=== PATIENT | male | born 1960 | race African-American/Black ===

== ENCOUNTER 2016-11-28 23:07 | Inpatient (IN) | payer SELFPAY ==
[~2016-11-28] VITALS: Ht 165.1 cm; Wt 71.7 kg
[2016-11-28] MEDS ORDERED: IV NORMAL SALINE 1000ML BAG 1,000 ML IV ONE (23:30)
[2016-11-28 23:32] LABS: BASO # 0.1 x10^3/uL (0.0-0.2); BASO % 1 % (0-3); EOS % 1 % (0-3); HEMATOCRIT 46.3 % (39.0-53.0); HEMOGLOBIN 15.6 g/dL (13.0-17.5); LYMPH % 28 % (24-48); MEAN CORPUSCULAR HEMOGLOBIN 34 pg (25-35); MEAN CORPUSCULAR HGB CONC 34 g/dL (31-37); MEAN CORPUSCULAR VOLUME 99 fL (79-100); MONO % 8 % (0-9); NEUT % 62 % (31-73); PLATELET COUNT 157 x10^3/uL (140-400); RED BLOOD COUNT 4.66 x10^6/uL (4.30-5.70); RED CELL DISTRIBUTION WIDTH 13.8 % (11.5-14.5); WHITE BLOOD COUNT 7.2 x10^3/uL (4.0-11.0)
[2016-11-28 23:47] LABS: BILIRUBIN,URINE NEGATIVE (NEG); GLUCOSE,URINE >=1000 mg/dL (NEG); NITRITE,URINE NEGATIVE (NEG); PH,URINE 5.5; PROTEIN,URINE NEGATIVE (NEG-TRACE); UROBILINOGEN,URINE 0.2 mg/dL (0.2 mg/dL)
[2016-11-28 23:47] LABS: ALBUMIN 3.1 g/dL (3.4-5.0); ALBUMIN/GLOBULIN RATIO 0.9 (1.0-1.7); CALCIUM 9.2 mg/dL (8.5-10.1); CREATININE 1.3 mg/dL (0.7-1.3); GFR 69.6; MAGNESIUM 1.7 mg/dL (1.8-2.4); POTASSIUM 4.1 mmol/L (3.5-5.1); TOTAL BILIRUBIN 0.5 mg/dL (0.2-1.0); TOTAL PROTEIN 6.5 g/dL (6.4-8.2)
[2016-11-28 23:51] LABS: BACTERIA,URINE 0 /HPF (0-FEW); RBC,URINE 0 /HPF (0-2); SQUAMOUS EPITHELIAL CELL,UR OCC /LPF; WBC,URINE 0 /HPF (0-4)
[2016-11-29] VITALS (7 sets, daily range): BP systolic 128–182; BP diastolic 74–108
[2016-11-29] LABS: PLT ESTIMATE ADEQUATE (ADEQUATE)
[2016-11-29] MEDS ORDERED: INSULIN REGULAR 100 UNIT/ML 10ML VIAL. SQ ONE (01:15)
[2016-11-29] MEDS: IV NORMAL SALINE 1000ML BAG 1,000 ML IV SCH ×3 (01:33→17:33)
[2016-11-29] MEDS ORDERED: ACETAMINOPHEN 325 MG TABLET. PO PRN (01:45)
[2016-11-29] MEDS ORDERED: MORPHINE SULFATE 2 MG/ML DISP.SYRIN. IV PRN (01:45)
[2016-11-29] MEDS ORDERED: ONDANSETRON PF 4 MG/2 ML VIAL. IV PRN (01:45)
[2016-11-29] MEDS ORDERED: DEXTROSE 50% 25 GM / 50ML DISP.SYRIN. IV PRN (01:45)
[2016-11-29] MEDS ORDERED: IV NORMAL SALINE 1000ML BAG 1,000 ML IV ONE (01:45)
--- NOTE | 2016-11-29 02:45 | PHYS DOC ---
Past Medical History Past Medical History: Diabetes-Type I, Glaucoma, Hypertension Past Surgical History: Other Additional Past Surgical Histo: shoulder Alcohol Use: Occasionally Drug Use: Marijuana Adult General Chief Complaint Chief Complaint: HYPERGLYCEMIA HPI HPI Patient is a 56 year old male who presents with hyperglycemia. The patient is insulin dependent type 1 diabetic. He states he recently started staying at [facility] & they have changed his insulin regimen. Typically takes long- acting insulin in AM & PM, as well as short-acting with meals. Facility eliminated AM dose of insulin & he only received 2 doses of short-acting yesterday since he didn't eat dinner. He reports polyuria & polydipsia. EMS originally called because he had blood pressure recheck with SBP in 160s, facility has policy to transfer to ED. Upon their arrival his BP had improved but glucometer reading was "high." He denies headache, chest pain, shortness of breath, abdominal pain, vomiting, diarrhea, dysuria, extremity numbness/ weakness. Review of Systems Review of Systems Constitutional: Denies fever or chills Eyes: Denies change in visual acuity HENT: Denies nasal congestion or sore throat Respiratory: Denies cough or shortness of breath Cardiovascular: Denies chest pain or edema GI: Denies abdominal pain, nausea, vomiting, or diarrhea : Denies dysuria or hematuria Endocrine: reports polyuria & polydipsia. Musculoskeletal: Denies back pain or joint pain Integument: Denies rash or skin lesions Neurologic: Denies headache, focal weakness or sensory changes Current Medications Current Medications Current Medications Medications (Trade) Dose Ordered Sig/Parveen Start Time Stop Time Status Last Admin Dose Admin Sodium Chloride 1,000 ml @ 1,000 mls/hr 1X ONCE 11/28/16 23:30 11/29/16 00:29 DC 11/28/16 23:29 1,000 MLS/HR Allergies Allergies Allergies Coded Allergies Type Severity Reaction Last Updated Verified Penicillins Allergy Intermediate rash 11/28/16 Yes Physical Exam Physical Exam Constitutional: Well developed, well nourished, no acute distress, non-toxic appearance. HENT: Normocephalic, atraumatic, bilateral external ears normal, oropharynx moist, nose normal. Eyes: PERRLA, EOMI, conjunctiva normal, no discharge. Neck: supple, no stridor. Cardiovascular: RRR, no murmurs, no edema. Lungs & Thorax: LCTAB, no wheezing, no respiratory distress. Abdomen: soft, nontender, nondistended. Skin: Warm, dry, no erythema, no rash. Back: No tenderness. Extremities: No tenderness, no edema. Neurologic: Alert and oriented X 3, moves all extremities, no focal deficits noted. Psychologic: Affect normal, judgement normal, mood normal. Current Patient Data Vital Signs Vital Signs Date Time Temp Pulse Resp B/P (MAP) Pulse Ox O2 Delivery O2 Flow Rate FiO2 11/29/16 00:30 64 184/102 (129) 96 Room Air 11/28/16 23:10 98.1 16 98.1 Lab Values Laboratory Tests Test 11/28/16 23:25 11/28/16 23:40 White Blood Count 7.2 x10^3/uL (4.0-11.0) Red Blood Count 4.66 x10^6/uL (4.30-5.70) Hemoglobin 15.6 g/dL (13.0-17.5) Hematocrit 46.3 % (39.0-53.0) Mean Corpuscular Volume 99 fL (79-100) Mean Corpuscular Hemoglobin 34 pg (25-35) Mean Corpuscular Hemoglobin Concent 34 g/dL (31-37) Red Cell Distribution Width 13.8 % (11.5-14.5) Platelet Count 157 x10^3/uL (140-400) Neutrophils (%) (Auto) 62 % (31-73) Lymphocytes (%) (Auto) 28 % (24-48) Monocytes (%) (Auto) 8 % (0-9) Eosinophils (%) (Auto) 1 % (0-3) Basophils (%) (Auto) 1 % (0-3) Neutrophils # (Auto) 4.5 x10^3uL (1.8-7.7) Lymphocytes # (Auto) 2.0 x10^3/uL (1.0-4.8) Monocytes # (Auto) 0.6 x10^3/uL (0.0-1.1) Eosinophils # (Auto) 0.1 x10^3/uL (0.0-0.7) Basophils # (Auto) 0.1 x10^3/uL (0.0-0.2) Platelet Estimate Adequate (ADEQUATE) Giant Platelets Occ Sodium Level 134 mmol/L (136-145) L Potassium Level 4.1 mmol/L (3.5-5.1) Chloride Level 99 mmol/L (98-107) Carbon Dioxide Level 25 mmol/L (21-32) Anion Gap 10 (6-14) Blood Urea Nitrogen 16 mg/dL (8-26) Creatinine 1.3 mg/dL (0.7-1.3) Estimated GFR (Cockcroft-Gault) 69.6 BUN/Creatinine Ratio 12 (6-20) Glucose Level 680 mg/dL (70-99) *H Serum Osmolality 317 mOsm/Kg (279-304) H Calcium Level 9.2 mg/dL (8.5-10.1) Phosphorus Level 4.0 mg/dL (2.6-4.7) Magnesium Level 1.7 mg/dL (1.8-2.4) L Total Bilirubin 0.5 mg/dL (0.2-1.0) Aspartate Amino Transferase (AST) 231 U/L (15-37) H Alanine Aminotransferase (ALT) 520 U/L (16-63) H Alkaline Phosphatase 251 U/L (46-116) H Troponin I Quantitative < 0.017 ng/mL (0.000-0.055) Total Protein 6.5 g/dL (6.4-8.2) Albumin 3.1 g/dL (3.4-5.0) L Albumin/Globulin Ratio 0.9 (1.0-1.7) L Urine Collection Type Unknown Urine Color Yellow Urine Clarity Clear Urine pH 5.5 Urine Specific [place] >=1.030 Urine Protein Negative mg/dL (NEG-TRACE) Urine Glucose (UA) >=1000 mg/dL (NEG) Urine Ketones (Stick) Negative mg/dL (NEG) Urine Blood Negative (NEG) Urine Nitrite Negative (NEG) Urine Bilirubin Negative (NEG) Urine Urobilinogen Dipstick 0.2 mg/dL (0.2 mg/dL) Urine Leukocyte Esterase Negative (NEG) Urine RBC 0 /HPF (0-2) Urine WBC 0 /HPF (0-4) Urine Squamous Epithelial Cells Occ /LPF Urine Bacteria 0 /HPF (0-FEW) Laboratory Tests 11/28/16 23:25 Laboratory Tests 11/28/16 23:25 EKG EKG interpreted by me: NSR rate 66, no acute ST/T wave changes, Q waves in V1-V3, normal intervals, no ectopy. Radiology/Procedures Radiology/Procedures [] Course & Med Decision Making Course & Med Decision Making Pertinent Labs and Imaging studies reviewed. (See chart for details) The patient presents with hyperglycemia. Blood glucose > 600 but not in DKA. Essentially no complaints here. Gave IV fluid bolus x 2 followed by subcutaneous injection of regular insulin. No osmolar gap. Recommended admission for further management of blood glucose. Patient agrees with plan of care. Will continue frequent accuchecks & sliding scale insulin, seems to be improving after insulin injection so I do not believe he requires insulin gtt at this time. Discussed with Dr. Barillas who agrees to admit to inpatient status. The patient is admitted in stable condition. [] Dragon Disclaimer Dragon Disclaimer This electronic medical record was generated, in whole or in part, using a voice recognition dictation system. Departure Departure Impression: Primary Impression: Hyperglycemia Additional Impression: Essential hypertension Disposition: ADMITTED INPATIENT Admitting Physician: Fredo Barillas Condition: STABLE Problem Qualifiers NINI MADERA MD November 29, 2016 02:45
[2016-11-29] MEDS ORDERED: INSU100I17 SQ (02:53)
[2016-11-29] MEDS ORDERED: LISI-334 PO (02:56)
[2016-11-29] MEDS ORDERED: INSU100V13 SQ ×2 (02:56)
--- NOTE | 2016-11-29 03:43 | ACF ---
Admit Criteria Forms Admit Criteria Forms Admit Criteria Forms HYPERTENSION Clinical Indications for Admission to Inpatient Care ( Place "X" for any and all applicable criteria): Admission is indicated for ANY ONE of the following(1)(2)(3)(4): [ ]I. Hypertensive emergency, with evidence of acute and progressing target organ disease as indicated by ANY ONE of the following: [ ]a) Hypertensive encephalopathy (eg, confusion, altered mental status) [ ]b) Cerebral infarction [ ]c) Intracranial hemorrhage [ ]d) Myocardial ischemia or infarction [ ]e) Pulmonary edema [ ]f) Aortic dissection [ ]g) Seizure [ ]h) Acute renal insufficiency [ ]i) Papilledema [ ]j) Microangiopathic hemolytic anemia [ ]II. Adrenergic crisis (eg, severe hypertension due to pheochromocytoma crisis, cocaine or amphetamine intoxication, or clonidine withdrawal) [X]III. Severe hypertension (SBP greater than 180 mmHg or DBP greater than 110 mmHg or greater than the 95th percentile for age, gender, and height in pediatric patients) that cannot be controlled (eg, to SBP less than 160 mmHg and DBP less than 100 mmHg in adults) by treatment with oral medication in emergency department or observation care Extended stay beyond goal length of stay may be needed for(11)(12)(13): [ ]a) Persistent hypertensive encephalopathy [ ]b) Continuation of pulmonary edema [ ]c) Recurring or persistent severe hypertension [ ]d) Target organ damage (eg, angina, stroke, aortic dissection) [ ]e) Associated renal insufficiency The original [employer] content created by [employer] has been revised. The portions of the content which have been revised are identified through the use of italic text or in bold, and [facility] has neither reviewed nor approved the modified material. All other unmodified content is copyright [employer]. Please see references footnoted in the original [email or web address] edition 2016 KAJAL ESCAMILLA November 29, 2016 03:43
--- NOTE | 2016-11-29 06:23 | EKG ---
[facility] [address] [place] [address] Test Date: 2016-11-28 Test Time: 23:32:31 Pat Name: VAISHALI BUSTILLOS Department: Room: 506 1 Gender: M Acid Treater: : 1960 Requested By: NINI MADERA Order Number: [id number] Reading MD: Omer Heard Measurements Intervals [place] Rate: 66 P: 41 DC: 152 QRS: 3 QRSD: 86 T: 60 QT: 410 QTc: 432 Interpretive Statements SINUS RHYTHM Electronically Signed On 11-30-2016 10:41:54 CDT by Omer Heard
[2016-11-29] MEDS: LISINOPRIL 20 MG TABLET PO SCH (08:19)
[2016-11-29] MEDS: INSULIN ASPART 300 UNITS/3 ML INSULN.PEN SQ SCH ×6 (08:26→17:32)
[2016-11-29] MEDS ORDERED: ZOLPIDEM 5 MG TABLET. PO PRN (08:30)
--- NOTE | 2016-11-29 08:48 | PDOC1 ---
History and Physical Date of Admission Date of Admission DATE: 11/29/16 TIME: 08:43 Identification/Chief Complaint Chief Complaint headache, lethargy Problems: Source Source: Chart review, Patient History of Present Illness History of Present Illness Mr. Smiley, is a 56 year old male who presents with hyperglycemia. The patient is insulin dependent type 1 diabetic. He states he recently started staying at [facility] & they have changed his insulin regimen. Typically takes long-acting insulin in AM & PM, as well as short-acting with meals. Facility eliminated AM dose of insulin & he only received 2 doses of short-acting yesterday since he didn't eat dinner. He reports polyuria & polydipsia. EMS originally called because he had blood pressure recheck with SBP in 160s, facility has policy to transfer to ED. Upon their arrival his BP had improved but glucometer reading was "high." He denies headache, chest pain , shortness of breath, abdominal pain, vomiting, diarrhea, dysuria, extremity numbness/weakness. Past Medical History Cardiovascular: HTN Pulmonary: No pertinent hx GI: No pertinent hx Heme/Onc: No pertinent hx Hepatobiliary: Hep A/B/C Psych: No pertinent hx Endocrine: Diabetes Past Surgical History Past Surgical History: No pertinent history Family History Family History: No Significant Social History Smoke: No ALCOHOL: none Drugs: None Current Problem List Problem List Problems Medical Problems: (1) Essential hypertension Status: Acute (2) Hyperglycemia Status: Acute Problems: Current Medications Current Medications Current Medications Sodium Chloride 1,000 ml @ 1,000 mls/hr 1X ONCE IV Last administered on 23:29; Start 11/28/16 at 23:30; Stop 11/29/16 at 00:29; Status DC Insulin Human Regular (NovoLIN R VIAL) 10 unit 1X ONCE SQ Last administered on 11/29/16 01:20; Start 11/29/16 at 01:15; Stop 11/29/16 at 01:16; Status DC Ondansetron HCl (Zofran) 4 mg PRN Q8HRS PRN IV NAUSEA/VOMITING; Start 11/29/16 at 01:45; Stop 11/30/16 at 01:44 Morphine Sulfate 2 mg PRN Q2HR PRN IV SEVERE PAIN; Start 11/29/16 at 01:45; Stop 11/30/16 at 01:44 Sodium Chloride 1,000 ml @ 125 mls/hr Q8H IV Last administered on 11/29/16 01 :33; Start 11/29/16 at 01:33; Stop 11/30/16 at 01:32 Acetaminophen (Tylenol) 650 mg PRN Q4HRS PRN PO FEVER; Start 11/29/16 at 01:45 ; Stop 11/30/16 at 01:44 Insulin Aspart (NovoLOG) 0-7 UNITS TIDWMEALS SQ Last administered on 11/29/16 08:27; Start 11/29/16 at 08:00 Dextrose (Dextrose 50%-Water Syringe) 12.5 gm PRN Q15MIN PRN IV SEE COMMENTS; Start 11/29/16 at 01:45 Sodium Chloride 1,000 ml @ 1,000 mls/hr 1X ONCE IV Last administered on 01:44; Start 11/29/16 at 01:45; Stop 11/29/16 at 02:44; Status DC Insulin Aspart (NovoLOG) 15 units TIDAC SQ Last administered on 11/29/16 08:26 ; Start 11/29/16 at 07:30 Lisinopril (Prinivil) 20 mg DAILY PO Last administered on 11/29/16 08:19; Start 11/29/16 at 09:00 Insulin Detemir (Levemir) 45 units BID SQ ; Start 11/30/16 at 09:00 Non-Formulary Medication 45 unit HS SQ ; Start 11/29/16 at 21:00; Status UNV Nicotine (Nicoderm Cq 14mg) 1 patch DAILY TD ; Start 11/29/16 at 09:00 Zolpidem Tartrate (Ambien) 5 mg PRN QHS PRN PO INSOMNIA, MAY REPEAT IN 1HR; Start 11/29/16 at 08:30 Active Scripts Active Reported Lisinopril 20 Mg Tablet 1 Tab PO DAILY Levemir (Insulin Detemir) 100 Unit/1 Ml Vial 45 Unit SQ DAILY07 Levemir (Insulin Detemir) 100 Unit/1 Ml Vial 45 Unit SQ HS Novolog Flexpen (Insulin Aspart) 100 Unit/1 Ml Insuln.pen 1 Unit SQ TIDAC Allergies Allergies: Coded Allergies: Penicillins (Verified Allergy, Intermediate, rash, 11/28/16) ROS General: YES: Fatigue, Malaise, No: Chills, Night Sweats, Appetite, Other PSYCHOLOGICAL ROS: No: Anxiety, Behavioral Disorder, Concentration difficultie , Decreased libido, Depression, Disorientation, Hallucinations, Hostility, Irritablity, Memory difficulties, Mood Swings, Obsessive thoughts, Physical abuse, Sexual abuse, Sleep disturbances, Suicidal ideation, Other Eyes: No Blurry vision, No Decreased vision, No Double vision, No Dry eyes, No Excessive tearing, No Eye Pain, No Itchy Eyes, No Loss of vision, No Photophobia , No Scotomata, No Uses contacts, No Uses glasses, No Other HEENT: YES: Heacaches, No: Visual Changes, Hearing change, Nasal congestion, Nasal discharge, Oral lesions, Sinus pain, Sore Throat, Epistaxis, Sneezing, Snoring, Tinnitus, Vertigo, Vocal changes, Other Respiratory: No: Cough, Hemoptysis, Orthopnea, Pleuritic Pain, Shortness of breath, SOB with excertion, Sputum Changes, Stridor, Tachypnea, Wheezing, Other Cardiovascular: No Chest Pain, No Palpitations, No Orthopnea, No Paroxysmal Noc. Dyspnea, No Edema, No Lt Headedness, No Other Gastrointestinal: Yes Nausea, No Vomiting, No Abdominal Pain, No Diarrhea, No Constipation, No Melena, No Hematochezia, No Other Genitourinary: No Dysuria, No Frequency, No Incontinence, No Hematuria, No Retention, No Discharge, No Urgency, No Pain, No Flank Pain, No Other, No , No , No , No , No , No , No Musculoskeletal: No Gait Disturbance, No Joint Pain, No Joint Stiffness, No Joint Swelling, No Muscle Pain, No Muscular Weakness, No Pain In:, No Swelling In:, No Other Neurological: No Behavorial Changes, No Bowel/Bladder ControlChng, No Confusion , No Dizziness, No Gait Disturbance, No Headaches, No Impaired Coord/balance, No Memory Loss, No Numbness/Tingling, No Seizures, No Speech Problems, No Tremors, No Visual Changes, No Weakness, No Other Skin: No Dry Skin, No Eczema, No Hair Changes, No Lumps, No Mole Changes, No Mottling, No Nail Changes, No Pruritus, No Rash, No Skin Lesion Changes, No Other, No Acne Physical Exam General: Alert, Cooperative, No acute distress HEENT: Atraumatic, PERRLA, EOMI, Mucous membr. moist/pink Lungs: Clear to auscultation, Normal air movement Heart: no gallops, no murmurs Abdomen: Normal bowel sounds Extremities: No cyanosis, No edema, Normal pulses Skin: No significant lesion Neuro: Normal gait, Strength at 5/5 X4 ext, Normal tone Psych/Mental Status: Mental status NL, Mood NL Vitals Vitals Vital Signs Date Time Temp Pulse Resp B/P (MAP) Pulse Ox O2 Delivery O2 Flow Rate FiO2 11/29/16 08:19 60 182/101 11/29/16 07:00 97.5 18 95 Room Air 97.5 Labs Labs Laboratory Tests Test 11/28/16 23:25 11/28/16 23:40 11/29/16 01:37 11/29/16 02:02 White Blood Count 7.2 x10^3/uL (4.0-11.0) Red Blood Count 4.66 x10^6/uL (4.30-5.70) Hemoglobin 15.6 g/dL (13.0-17.5) Hematocrit 46.3 % (39.0-53.0) Mean Corpuscular Volume 99 fL (79-100) Mean Corpuscular Hemoglobin 34 pg (25-35) Mean Corpuscular Hemoglobin Concent 34 g/dL (31-37) Red Cell Distribution Width 13.8 % (11.5-14.5) Platelet Count 157 x10^3/uL (140-400) Neutrophils (%) (Auto) 62 % (31-73) Lymphocytes (%) (Auto) 28 % (24-48) Monocytes (%) (Auto) 8 % (0-9) Eosinophils (%) (Auto) 1 % (0-3) Basophils (%) (Auto) 1 % (0-3) Neutrophils # (Auto) 4.5 x10^3uL (1.8-7.7) Lymphocytes # (Auto) 2.0 x10^3/uL (1.0-4.8) Monocytes # (Auto) 0.6 x10^3/uL (0.0-1.1) Eosinophils # (Auto) 0.1 x10^3/uL (0.0-0.7) Basophils # (Auto) 0.1 x10^3/uL (0.0-0.2) Platelet Estimate Adequate (ADEQUATE) Giant Platelets Occ Sodium Level 134 mmol/L (136-145) Potassium Level 4.1 mmol/L (3.5-5.1) Chloride Level 99 mmol/L (98-107) Carbon Dioxide Level 25 mmol/L (21-32) Anion Gap 10 (6-14) Blood Urea Nitrogen 16 mg/dL (8-26) Creatinine 1.3 mg/dL (0.7-1.3) Estimated GFR (Cockcroft-Gault) 69.6 BUN/Creatinine Ratio 12 (6-20) Glucose Level 680 mg/dL (70-99) Serum Osmolality 317 mOsm/Kg (279-304) Calcium Level 9.2 mg/dL (8.5-10.1) Phosphorus Level 4.0 mg/dL (2.6-4.7) Magnesium Level 1.7 mg/dL (1.8-2.4) Total Bilirubin 0.5 mg/dL (0.2-1.0) Aspartate Amino Transf (AST/SGOT) 231 U/L (15-37) Alanine Aminotransferase (ALT/SGPT) 520 U/L (16-63) Alkaline Phosphatase 251 U/L (46-116) Troponin I Quantitative < 0.017 ng/mL (0.000-0.055) Total Protein 6.5 g/dL (6.4-8.2) Albumin 3.1 g/dL (3.4-5.0) Albumin/Globulin Ratio 0.9 (1.0-1.7) Urine Collection Type Unknown Urine Color Yellow Urine Clarity Clear Urine pH 5.5 Urine Specific [place] >=1.030 Urine Protein Negative mg/dL (NEG-TRACE) Urine Glucose (UA) >=1000 mg/dL (NEG) Urine Ketones (Stick) Negative mg/dL (NEG) Urine Blood Negative (NEG) Urine Nitrite Negative (NEG) Urine Bilirubin Negative (NEG) Urine Urobilinogen Dipstick 0.2 mg/dL (0.2 mg/dL) Urine Leukocyte Esterase Negative (NEG) Urine RBC 0 /HPF (0-2) Urine WBC 0 /HPF (0-4) Urine Squamous Epithelial Cells Occ /LPF Urine Bacteria 0 /HPF (0-FEW) Glucose (Fingerstick) 500 mg/dL (70-99) 491 mg/dL (70-99) Test 11/29/16 07:42 Glucose (Fingerstick) 290 mg/dL (70-99) Laboratory Tests Test 11/28/16 23:25 11/28/16 23:40 11/29/16 01:37 11/29/16 02:02 White Blood Count 7.2 x10^3/uL (4.0-11.0) Red Blood Count 4.66 x10^6/uL (4.30-5.70) Hemoglobin 15.6 g/dL (13.0-17.5) Hematocrit 46.3 % (39.0-53.0) Mean Corpuscular Volume 99 fL (79-100) Mean Corpuscular Hemoglobin 34 pg (25-35) Mean Corpuscular Hemoglobin Concent 34 g/dL (31-37) Red Cell Distribution Width 13.8 % (11.5-14.5) Platelet Count 157 x10^3/uL (140-400) Neutrophils (%) (Auto) 62 % (31-73) Lymphocytes (%) (Auto) 28 % (24-48) Monocytes (%) (Auto) 8 % (0-9) Eosinophils (%) (Auto) 1 % (0-3) Basophils (%) (Auto) 1 % (0-3) Neutrophils # (Auto) 4.5 x10^3uL (1.8-7.7) Lymphocytes # (Auto) 2.0 x10^3/uL (1.0-4.8) Monocytes # (Auto) 0.6 x10^3/uL (0.0-1.1) Eosinophils # (Auto) 0.1 x10^3/uL (0.0-0.7) Basophils # (Auto) 0.1 x10^3/uL (0.0-0.2) Platelet Estimate Adequate (ADEQUATE) Giant Platelets Occ Sodium Level 134 mmol/L (136-145) Potassium Level 4.1 mmol/L (3.5-5.1) Chloride Level 99 mmol/L (98-107) Carbon Dioxide Level 25 mmol/L (21-32) Anion Gap 10 (6-14) Blood Urea Nitrogen 16 mg/dL (8-26) Creatinine 1.3 mg/dL (0.7-1.3) Estimated GFR (Cockcroft-Gault) 69.6 BUN/Creatinine Ratio 12 (6-20) Glucose Level 680 mg/dL (70-99) Serum Osmolality 317 mOsm/Kg (279-304) Calcium Level 9.2 mg/dL (8.5-10.1) Phosphorus Level 4.0 mg/dL (2.6-4.7) Magnesium Level 1.7 mg/dL (1.8-2.4) Total Bilirubin 0.5 mg/dL (0.2-1.0) Aspartate Amino Transf (AST/SGOT) 231 U/L (15-37) Alanine Aminotransferase (ALT/SGPT) 520 U/L (16-63) Alkaline Phosphatase 251 U/L (46-116) Troponin I Quantitative < 0.017 ng/mL (0.000-0.055) Total Protein 6.5 g/dL (6.4-8.2) Albumin 3.1 g/dL (3.4-5.0) Albumin/Globulin Ratio 0.9 (1.0-1.7) Urine Collection Type Unknown Urine Color Yellow Urine Clarity Clear Urine pH 5.5 Urine Specific [place] >=1.030 Urine Protein Negative mg/dL (NEG-TRACE) Urine Glucose (UA) >=1000 mg/dL (NEG) Urine Ketones (Stick) Negative mg/dL (NEG) Urine Blood Negative (NEG) Urine Nitrite Negative (NEG) Urine Bilirubin Negative (NEG) Urine Urobilinogen Dipstick 0.2 mg/dL (0.2 mg/dL) Urine Leukocyte Esterase Negative (NEG) Urine RBC 0 /HPF (0-2) Urine WBC 0 /HPF (0-4) Urine Squamous Epithelial Cells Occ /LPF Urine Bacteria 0 /HPF (0-FEW) Glucose (Fingerstick) 500 mg/dL (70-99) 491 mg/dL (70-99) Test 11/29/16 07:42 Glucose (Fingerstick) 290 mg/dL (70-99) VTE Prophylaxis Ordered VTE Prophylaxis Devices: No VTE Pharmacological Prophylaxi: No Assessment/Plan Assessment/Plan hyperglycemia encephalopathy htn, poor control Hep C w. transaminitis, lack of insurance prohibitive to care admit obs JOSE PARIS MD November 29, 2016 08:48
--- NOTE | 2016-11-29 10:05 | PDOC2 ---
GI CONSULT Reason For Consult: Transaminitis HPI: HPI: 56 y/o AA male who currently resides at a long term in [place], [place], is uninsured. Admitted w/ hyperglycemia (first glucose check 680), type 1 diabetic. Has actually been feeling well. Noted to have abnormal LFTs - AST 231, ALT 520, Alk Phos 251. CBC and bili WNL. Reports h/o Hep C x 2 years, diagnosed in [place], unsure how contracted. Also used to drink alcohol heavily, not so much anymore. Has occasional epigastric pain, currently not bothersome. Denies reflux/heartburn, dysphagia, n/v, diarrhea, constipation, hematochezia, melena, change in appetite, weight loss. Recalls normal colonoscopy years ago, no previous EGD. Has been taking NSAIDs (Aleve) for back pain PRN. PMH: PMH: Hep C, DM type 1, HTN, glaucoma, depression, right shoulder surgery, left ankle surgery FH: Family History: No pertinent hx (deneis GI cancers) Social History: Smoke: <1 pack per day (6-8 cigarettes daily) ALCOHOL: occassional (used to drink heavily when younger) Drugs: Marijuana ROS: GEN: Denies fevers, chills, sweats HEENT: Denies blurred vision, sore throat CV: Denies chest pain RESP: Denies shortness of air, cough GI: Per HPI : Denies hematuria, dysuria ENDO: Denies weight changes NEURO: Denies confusion, dizziness MSK: back pain SKIN: Denies jaundice, pruritus Vitals: Vitals: Vital Signs Date Time Temp Pulse Resp B/P (MAP) Pulse Ox O2 Delivery O2 Flow Rate FiO2 11/29/16 08:19 60 182/101 11/29/16 08:00 Room Air 11/29/16 07:00 97.5 18 95 97.5 Labs: Labs: Laboratory Tests Test 11/28/16 23:25 11/28/16 23:40 11/29/16 01:37 11/29/16 02:02 White Blood Count 7.2 x10^3/uL (4.0-11.0) Red Blood Count 4.66 x10^6/uL (4.30-5.70) Hemoglobin 15.6 g/dL (13.0-17.5) Hematocrit 46.3 % (39.0-53.0) Mean Corpuscular Volume 99 fL (79-100) Mean Corpuscular Hemoglobin 34 pg (25-35) Mean Corpuscular Hemoglobin Concent 34 g/dL (31-37) Red Cell Distribution Width 13.8 % (11.5-14.5) Platelet Count 157 x10^3/uL (140-400) Neutrophils (%) (Auto) 62 % (31-73) Lymphocytes (%) (Auto) 28 % (24-48) Monocytes (%) (Auto) 8 % (0-9) Eosinophils (%) (Auto) 1 % (0-3) Basophils (%) (Auto) 1 % (0-3) Neutrophils # (Auto) 4.5 x10^3uL (1.8-7.7) Lymphocytes # (Auto) 2.0 x10^3/uL (1.0-4.8) Monocytes # (Auto) 0.6 x10^3/uL (0.0-1.1) Eosinophils # (Auto) 0.1 x10^3/uL (0.0-0.7) Basophils # (Auto) 0.1 x10^3/uL (0.0-0.2) Platelet Estimate Adequate (ADEQUATE) Giant Platelets Occ Sodium Level 134 mmol/L (136-145) Potassium Level 4.1 mmol/L (3.5-5.1) Chloride Level 99 mmol/L (98-107) Carbon Dioxide Level 25 mmol/L (21-32) Anion Gap 10 (6-14) Blood Urea Nitrogen 16 mg/dL (8-26) Creatinine 1.3 mg/dL (0.7-1.3) Estimated GFR (Cockcroft-Gault) 69.6 BUN/Creatinine Ratio 12 (6-20) Glucose Level 680 mg/dL (70-99) Serum Osmolality 317 mOsm/Kg (279-304) Calcium Level 9.2 mg/dL (8.5-10.1) Phosphorus Level 4.0 mg/dL (2.6-4.7) Magnesium Level 1.7 mg/dL (1.8-2.4) Total Bilirubin 0.5 mg/dL (0.2-1.0) Aspartate Amino Transf (AST/SGOT) 231 U/L (15-37) Alanine Aminotransferase (ALT/SGPT) 520 U/L (16-63) Alkaline Phosphatase 251 U/L (46-116) Troponin I Quantitative < 0.017 ng/mL (0.000-0.055) Total Protein 6.5 g/dL (6.4-8.2) Albumin 3.1 g/dL (3.4-5.0) Albumin/Globulin Ratio 0.9 (1.0-1.7) Urine Collection Type Unknown Urine Color Yellow Urine Clarity Clear Urine pH 5.5 Urine Specific [place] >=1.030 Urine Protein Negative mg/dL (NEG-TRACE) Urine Glucose (UA) >=1000 mg/dL (NEG) Urine Ketones (Stick) Negative mg/dL (NEG) Urine Blood Negative (NEG) Urine Nitrite Negative (NEG) Urine Bilirubin Negative (NEG) Urine Urobilinogen Dipstick 0.2 mg/dL (0.2 mg/dL) Urine Leukocyte Esterase Negative (NEG) Urine RBC 0 /HPF (0-2) Urine WBC 0 /HPF (0-4) Urine Squamous Epithelial Cells Occ /LPF Urine Bacteria 0 /HPF (0-FEW) Glucose (Fingerstick) 500 mg/dL (70-99) 491 mg/dL (70-99) Test 11/29/16 07:42 Glucose (Fingerstick) 290 mg/dL (70-99) Allergies: Coded Allergies: Penicillins (Verified Allergy, Intermediate, rash, 11/28/16) Medications: Current Medications Medications (Trade) Dose Ordered Sig/Parveen Route PRN Reason Start Time Stop Time Status Last Admin Dose Admin Sodium Chloride 1,000 ml @ 1,000 mls/hr 1X ONCE IV 11/28/16 23:30 11/29/16 00:29 DC 11/28/16 23:29 Insulin Human Regular (NovoLIN R VIAL) 10 unit 1X ONCE SQ 11/29/16 01:15 11/29/16 01:16 DC 11/29/16 01:20 Sodium Chloride 1,000 ml @ 125 mls/hr Q8H IV 11/29/16 01:33 11/30/16 01:32 11/29/16 01:33 Insulin Aspart (NovoLOG) 0-7 UNITS TIDWMEALS SQ 11/29/16 08:00 11/29/16 08:27 Sodium Chloride 1,000 ml @ 1,000 mls/hr 1X ONCE IV 11/29/16 01:45 11/29/16 02:44 DC 11/29/16 01:44 Insulin Aspart (NovoLOG) 15 units TIDAC SQ 11/29/16 07:30 11/29/16 08:26 Lisinopril (Prinivil) 20 mg DAILY PO 11/29/16 09:00 11/29/16 08:19 Imaging: Imaging: - PE: GEN: NAD HEENT: Atraumatic, PERRL LUNGS: CTAB anteriorly HEART: RRR ABD: NABS, S/ND/NT EXTREMITY: No edema SKIN: No rashes, no jaundice NEURO/PSYCH: A & O 3 A/P: A/P: Abnormal LFTs -AST 231, ALT 520, Alk Phos 251 -h/o Hep C as below, also reports alcohol use - heavy in the past Hep C -diagnosed 2 years ago in [place], [place] where is currently resides in a long term CRC screen -recalls previously normal colonoscopy years ago Hyperglycemia, DM 1, tobacco/substance abuse -per primary -- Confirm w/ Hep C antibody (primary has already ordered acute Hep panel) and check abd US (assess for cirrhosis, etc). Difficult without insurance, discussed this with him. Follow-up w/ gastroenterology at home in [place]. CLYDE ROONEY November 29, 2016 10:05
[2016-11-29] MEDS: NICOTINE 14MG PATCH. TD SCH (12:41)
[2016-11-29] MEDS: amLODIPine BESYLATE 5 MG TABLET PO SCH (16:20)
--- NOTE | 2016-11-29 16:26 | RAD ---
Abdominal ultrasound, 11/29/2016: History: Abnormal lab studies, hepatitis C The gallbladder is within normal limits in size. There is no sonographic evidence of cholelithiasis. The gallbladder farah are not thickened. No bile duct dilatation is seen. The visualized portions of the liver are unremarkable. A small rounded hypoechoic focus is identified in the region of the pancreatic neck/head. It measures 1.5 cm. No color flow is seen within this structure. The pancreas possibility of a small pancreatic mass or adjacent enlarged node. The visualized portions of the pancreas are otherwise unremarkable. The spleen is of normal size. The kidneys show no evidence of obstruction or mass. The aorta is of normal caliber. The visualized portions of inferior vena cava are unremarkable. No free fluid is evident in the abdomen. IMPRESSION: 1. Possible small pancreatic head mass. CT scanning is suggested for further evaluation. 2. The abdominal ultrasound is otherwise unremarkable.
[2016-11-29] MEDS ORDERED: INSULIN DETEMIR 45 UNIT SQ SCH (21:00)
[2016-11-29 21:09] LABS: HEP A IGM ABDY Negative (Negative)
[2016-11-29] MEDS: INSULIN DETEMIR 300 UNITS/3 ML INSULN.PEN. SQ SCH (22:52)
[2016-11-30 06:29] LABS: BASO % 0 % (0-3); EOS % 2 % (0-3); HEMATOCRIT 45.5 % (39.0-53.0); HEMOGLOBIN 15.5 g/dL (13.0-17.5); LYMPH # 1.4 x10^3/uL (1.0-4.8); LYMPH % 26 % (24-48); MEAN CORPUSCULAR HEMOGLOBIN 33 pg (25-35); MEAN CORPUSCULAR HGB CONC 34 g/dL (31-37); MEAN CORPUSCULAR VOLUME 98 fL (79-100); MONO % 10 % (0-9); NEUT % 63 % (31-73); PLATELET COUNT 132 x10^3/uL (140-400); RED BLOOD COUNT 4.65 x10^6/uL (4.30-5.70); WHITE BLOOD COUNT 5.5 x10^3/uL (4.0-11.0)
[2016-11-30 06:41] LABS: CALCIUM 8.1 mg/dL (8.5-10.1); GFR 94.2; POTASSIUM 3.9 mmol/L (3.5-5.1)
[2016-11-30 07:00] VITALS: BP 148/96
[2016-11-30] MEDS ORDERED: INSULIN DETEMIR 300 UNITS/3 ML INSULN.PEN. SQ SCH (09:00)
[2016-11-30 09:02] VITALS: BP 148/96
[2016-11-30] MEDS: LISINOPRIL 20 MG TABLET PO SCH (09:02)
[2016-11-30] MEDS: amLODIPine BESYLATE 5 MG TABLET PO SCH (09:02)
[2016-11-30] MEDS: INSULIN ASPART 300 UNITS/3 ML INSULN.PEN SQ SCH ×4 (09:09→12:16)
[2016-11-30] MEDS: NICOTINE 14MG PATCH. TD SCH (09:11)
[2016-11-30] MEDS: INSULIN DETEMIR 300 UNITS/3 ML INSULN.PEN. SQ SCH (09:11)
[2016-11-30] MEDS ORDERED: IOHEXOL 300 MG/ML 75 ML VIAL IV ONE (10:30)
[2016-11-30] MEDS ORDERED: CONTRAST GIVEN MC PRN (10:30)
--- NOTE | 2016-11-30 11:43 | RAD ---
Examination: CT of the abdomen pelvis with IV contrast History: History of pancreatic lesion on ultrasound. Comparison: Ultrasound from 11/29/2016 Technique: Axial CT images of the abdomen was performed without contrast with axial CT images of the abdomen pelvis were performed with IV contrast using CT pancreatic protocol. Coronal and sagittal reformats were performed PQRS Compliance Statement: One or more of the following individualized dose reduction techniques were utilized for this examination: 1. Automated exposure control 2. Adjustment of the mA and/or kV according to patient size 3. Use of iterative reconstruction technique Findings: The visualized bibasal lungs grossly appears unremarkable. No evidence of free air identified in the abdomen. The visualized liver grossly appears unremarkable. The gallbladder is mildly distended. The visualized spleen, adrenals grossly appears unremarkable. The stomach is mildly distended with fluid. The small bowel is nondilated. Feces and gas noted throughout the colon. The appendix is normal There is thickened appearance of the urinary bladder wall, minimal distention. The bilateral kidneys enhance symmetrically. The enhancement of the pancreas grossly appears unremarkable. Just superior to the junction of the head and neck of the pancreas and just inferior to the left lobe of the liver best seen on the coronal images series 12 image #31 there is a 2.5 cm density which appears to abut the pancreas is most probably a lymph node No evidence of lytic bony destructive lesion identified. The caliber of the aorta grossly appears unremarkable. Impression: 1. Just superior to the junction of the head and neck of the pancreas and just inferior to the left lobe of the liver best seen on the coronal images series 12 image #31 there is a 2.5 cm density which appears to abut the pancreas is most probably a lymph node. Follow-up examination is recommended to document stability. 2. Moderately thickened appearance of the wall of the urinary bladder probably due to nondistention or underlying mucosal pathology.
[2016-11-30] MEDS ORDERED: AMLO5TAB2 PO (11:55)
[2016-11-30] MEDS ORDERED: INSU100I17 SQ (11:55)
--- NOTE | 2016-11-30 12:01 | PDOC3 ---
Discharge Summary Visit Information Date of Admission: November 29, 2016 Date of Discharge: November 30, 2016 Admitting Diagnosis: hyperglycemia, Final Diagnosis DM2, poor control Hep c w/ tranaminitis HTN, poor control Problems Medical Problems: (1) Essential hypertension Status: Acute (2) Hyperglycemia Status: Acute Brief Hospital Course Allergies Allergies Coded Allergies Type Severity Reaction Last Updated Verified Penicillins Allergy Intermediate rash 11/28/16 Yes Vital Signs Vital Signs Date Time Temp Pulse Resp B/P (MAP) Pulse Ox O2 Delivery O2 Flow Rate FiO2 11/30/16 09:02 70 148/96 11/30/16 08:00 Room Air 11/30/16 07:00 97.5 19 96 97.5 Lab Results Laboratory Tests Test 11/28/16 23:25 11/28/16 23:40 11/29/16 01:37 11/29/16 02:02 White Blood Count 7.2 x10^3/uL (4.0-11.0) Red Blood Count 4.66 x10^6/uL (4.30-5.70) Hemoglobin 15.6 g/dL (13.0-17.5) Hematocrit 46.3 % (39.0-53.0) Mean Corpuscular Volume 99 fL (79-100) Mean Corpuscular Hemoglobin 34 pg (25-35) Mean Corpuscular Hemoglobin Concent 34 g/dL (31-37) Red Cell Distribution Width 13.8 % (11.5-14.5) Platelet Count 157 x10^3/uL (140-400) Neutrophils (%) (Auto) 62 % (31-73) Lymphocytes (%) (Auto) 28 % (24-48) Monocytes (%) (Auto) 8 % (0-9) Eosinophils (%) (Auto) 1 % (0-3) Basophils (%) (Auto) 1 % (0-3) Neutrophils # (Auto) 4.5 x10^3uL (1.8-7.7) Lymphocytes # (Auto) 2.0 x10^3/uL (1.0-4.8) Monocytes # (Auto) 0.6 x10^3/uL (0.0-1.1) Eosinophils # (Auto) 0.1 x10^3/uL (0.0-0.7) Basophils # (Auto) 0.1 x10^3/uL (0.0-0.2) Platelet Estimate Adequate (ADEQUATE) Giant Platelets Occ Sodium Level 134 mmol/L (136-145) Potassium Level 4.1 mmol/L (3.5-5.1) Chloride Level 99 mmol/L (98-107) Carbon Dioxide Level 25 mmol/L (21-32) Anion Gap 10 (6-14) Blood Urea Nitrogen 16 mg/dL (8-26) Creatinine 1.3 mg/dL (0.7-1.3) Estimated GFR (Cockcroft-Gault) 69.6 BUN/Creatinine Ratio 12 (6-20) Glucose Level 680 mg/dL (70-99) Serum Osmolality 317 mOsm/Kg (279-304) Calcium Level 9.2 mg/dL (8.5-10.1) Phosphorus Level 4.0 mg/dL (2.6-4.7) Magnesium Level 1.7 mg/dL (1.8-2.4) Total Bilirubin 0.5 mg/dL (0.2-1.0) Aspartate Amino Transf (AST/SGOT) 231 U/L (15-37) Alanine Aminotransferase (ALT/SGPT) 520 U/L (16-63) Alkaline Phosphatase 251 U/L (46-116) Troponin I Quantitative < 0.017 ng/mL (0.000-0.055) Total Protein 6.5 g/dL (6.4-8.2) Albumin 3.1 g/dL (3.4-5.0) Albumin/Globulin Ratio 0.9 (1.0-1.7) Urine Collection Type Unknown Urine Color Yellow Urine Clarity Clear Urine pH 5.5 Urine Specific [place] >=1.030 Urine Protein Negative mg/dL (NEG-TRACE) Urine Glucose (UA) >=1000 mg/dL (NEG) Urine Ketones (Stick) Negative mg/dL (NEG) Urine Blood Negative (NEG) Urine Nitrite Negative (NEG) Urine Bilirubin Negative (NEG) Urine Urobilinogen Dipstick 0.2 mg/dL (0.2 mg/dL) Urine Leukocyte Esterase Negative (NEG) Urine RBC 0 /HPF (0-2) Urine WBC 0 /HPF (0-4) Urine Squamous Epithelial Cells Occ /LPF Urine Bacteria 0 /HPF (0-FEW) Glucose (Fingerstick) 500 mg/dL (70-99) 491 mg/dL (70-99) Test 11/29/16 06:27 11/29/16 07:42 11/29/16 10:10 11/29/16 10:51 Glucose (Fingerstick) 477 mg/dL (70-99) 290 mg/dL (70-99) 259 mg/dL (70-99) Hepatitis A IgM Antibody Negative (Negative) Hepatitis B Surface Antigen Negative (Negative) Hepatitis B Core IgM Antibody Negative (Negative) Hepatitis C Antibody >11.0 s/co ratio Test 11/29/16 16:14 11/29/16 17:24 11/29/16 22:27 11/30/16 04:55 Glucose (Fingerstick) 185 mg/dL (70-99) 267 mg/dL (70-99) 264 mg/dL (70-99) White Blood Count 5.5 x10^3/uL (4.0-11.0) Red Blood Count 4.65 x10^6/uL (4.30-5.70) Hemoglobin 15.5 g/dL (13.0-17.5) Hematocrit 45.5 % (39.0-53.0) Mean Corpuscular Volume 98 fL (79-100) Mean Corpuscular Hemoglobin 33 pg (25-35) Mean Corpuscular Hemoglobin Concent 34 g/dL (31-37) Red Cell Distribution Width 14.0 % (11.5-14.5) Platelet Count 132 x10^3/uL (140-400) Neutrophils (%) (Auto) 63 % (31-73) Lymphocytes (%) (Auto) 26 % (24-48) Monocytes (%) (Auto) 10 % (0-9) Eosinophils (%) (Auto) 2 % (0-3) Basophils (%) (Auto) 0 % (0-3) Neutrophils # (Auto) 3.5 x10^3uL (1.8-7.7) Lymphocytes # (Auto) 1.4 x10^3/uL (1.0-4.8) Monocytes # (Auto) 0.5 x10^3/uL (0.0-1.1) Eosinophils # (Auto) 0.1 x10^3/uL (0.0-0.7) Basophils # (Auto) 0.0 x10^3/uL (0.0-0.2) Sodium Level 140 mmol/L (136-145) Potassium Level 3.9 mmol/L (3.5-5.1) Chloride Level 105 mmol/L (98-107) Carbon Dioxide Level 29 mmol/L (21-32) Anion Gap 6 (6-14) Blood Urea Nitrogen 10 mg/dL (8-26) Creatinine 1.0 mg/dL (0.7-1.3) Estimated GFR (Cockcroft-Gault) 94.2 Glucose Level 240 mg/dL (70-99) Calcium Level 8.1 mg/dL (8.5-10.1) Test 11/30/16 07:19 11/30/16 11:51 Glucose (Fingerstick) 243 mg/dL (70-99) 188 mg/dL (70-99) Laboratory Tests Test 11/29/16 16:14 11/29/16 17:24 11/29/16 22:27 11/30/16 04:55 Glucose (Fingerstick) 185 mg/dL (70-99) 267 mg/dL (70-99) 264 mg/dL (70-99) White Blood Count 5.5 x10^3/uL (4.0-11.0) Red Blood Count 4.65 x10^6/uL (4.30-5.70) Hemoglobin 15.5 g/dL (13.0-17.5) Hematocrit 45.5 % (39.0-53.0) Mean Corpuscular Volume 98 fL (79-100) Mean Corpuscular Hemoglobin 33 pg (25-35) Mean Corpuscular Hemoglobin Concent 34 g/dL (31-37) Red Cell Distribution Width 14.0 % (11.5-14.5) Platelet Count 132 x10^3/uL (140-400) Neutrophils (%) (Auto) 63 % (31-73) Lymphocytes (%) (Auto) 26 % (24-48) Monocytes (%) (Auto) 10 % (0-9) Eosinophils (%) (Auto) 2 % (0-3) Basophils (%) (Auto) 0 % (0-3) Neutrophils # (Auto) 3.5 x10^3uL (1.8-7.7) Lymphocytes # (Auto) 1.4 x10^3/uL (1.0-4.8) Monocytes # (Auto) 0.5 x10^3/uL (0.0-1.1) Eosinophils # (Auto) 0.1 x10^3/uL (0.0-0.7) Basophils # (Auto) 0.0 x10^3/uL (0.0-0.2) Sodium Level 140 mmol/L (136-145) Potassium Level 3.9 mmol/L (3.5-5.1) Chloride Level 105 mmol/L (98-107) Carbon Dioxide Level 29 mmol/L (21-32) Anion Gap 6 (6-14) Blood Urea Nitrogen 10 mg/dL (8-26) Creatinine 1.0 mg/dL (0.7-1.3) Estimated GFR (Cockcroft-Gault) 94.2 Glucose Level 240 mg/dL (70-99) Calcium Level 8.1 mg/dL (8.5-10.1) Test 11/30/16 07:19 11/30/16 11:51 Glucose (Fingerstick) 243 mg/dL (70-99) 188 mg/dL (70-99) Brief Hospital Course Mr. Smiley is a 56 old male, admit with hyperglycemia, transaminitis, weakness and debility home meds restared, pt improved, BS 200 range Discharge Information Condition at Discharge: Improved Follow Up: Weeks Disposition/Orders: D/C to Home Scheduled Insulin Aspart (Novolog Flexpen), 18 UNIT SQ TIDAC Insulin Detemir (Levemir), 45 UNIT SQ HS, (Reported) Insulin Detemir (Levemir), 45 UNIT SQ DAILY07, (Reported) Lisinopril (Lisinopril), 1 TAB PO DAILY, (Reported) Patient Instructions Patient Instructions time < [address] [facility] sent to his pharmacy in [place] change insulin 45 NPH BID Reg insulin 18 TID w/ meals DM diet, exercise encouraged homelessness discussed, he has a plan JOSE PARIS MD November 30, 2016 12:01
--- NOTE | 2016-11-30 12:25 | PDOC ---
Subjective: Subjective: Feeling great, ready to DC. Objective: Vital Signs: Vital Signs Date Time Temp Pulse Resp B/P (MAP) Pulse Ox O2 Delivery O2 Flow Rate FiO2 11/30/16 09:02 70 148/96 11/30/16 08:00 Room Air 11/30/16 07:00 97.5 19 96 97.5 Labs: Laboratory Tests Test 11/29/16 16:14 11/29/16 17:24 11/29/16 22:27 11/30/16 04:55 Glucose (Fingerstick) 185 mg/dL 267 mg/dL 264 mg/dL White Blood Count 5.5 x10^3/uL Red Blood Count 4.65 x10^6/uL Hemoglobin 15.5 g/dL Hematocrit 45.5 % Mean Corpuscular Volume 98 fL Mean Corpuscular Hemoglobin 33 pg Mean Corpuscular Hemoglobin Concent 34 g/dL Red Cell Distribution Width 14.0 % Platelet Count 132 x10^3/uL Neutrophils (%) (Auto) 63 % Lymphocytes (%) (Auto) 26 % Monocytes (%) (Auto) 10 % Eosinophils (%) (Auto) 2 % Basophils (%) (Auto) 0 % Neutrophils # (Auto) 3.5 x10^3uL Lymphocytes # (Auto) 1.4 x10^3/uL Monocytes # (Auto) 0.5 x10^3/uL Eosinophils # (Auto) 0.1 x10^3/uL Basophils # (Auto) 0.0 x10^3/uL Sodium Level 140 mmol/L Potassium Level 3.9 mmol/L Chloride Level 105 mmol/L Carbon Dioxide Level 29 mmol/L Anion Gap 6 Blood Urea Nitrogen 10 mg/dL Creatinine 1.0 mg/dL Estimated GFR (Cockcroft-Gault) 94.2 Glucose Level 240 mg/dL Calcium Level 8.1 mg/dL Test 11/30/16 07:19 11/30/16 11:51 Glucose (Fingerstick) 243 mg/dL 188 mg/dL Imaging: Abd US 11/29/16 IMPRESSION: 1. Possible small pancreatic head mass. CT scanning is suggested for further evaluation. 2. The abdominal ultrasound is otherwise unremarkable. CT A/P w/ IV contrast 11/30/16 Impression: 1. Just superior to the junction of the head and neck of the pancreas and just inferior to the left lobe of the liver best seen on the coronal images series 12 image #31 there is a 2.5 cm density which appears to abut the pancreas is most probably a lymph node. Follow-up examination is recommended to document stability. 2. Moderately thickened appearance of the wall of the urinary bladder probably due to nondistention or underlying mucosal pathology. PE: GEN: NAD, sitting up in bed, smiling, eating lunch LUNGS: CTAB HEART: RRR ABD: S/ND/NT NEURO/PSYCH: A & O 3 A/P: Abnormal LFTs, h/o Hep C and alcohol abuse Abnormal abd imaging -US and CT as above, probable lymph node near pancreas, follow-up suggested -- Uninsured, social work hs met w/ him re: obtaining medical services. Encouraged follow-up w/ [facility] in [place] for imaging as above. CLYDE ROONEY November 30, 2016 12:25
== END 2016-11-30 15:08 | disposition home or self-care (01) | DRG 637 ==
LOC: ER 23:07 → 5 NORTH 11-29 00:58
PROVIDERS: ADMIT Internal Medicine; ATTEND Internal Medicine
DX: E11.65 Type 2 diabetes mellitus with hyperglycemia (principal); G93.40 Encephalopathy, unspecified; F17.210 Nicotine dependence, cigarettes, uncomplicated; F32.9 Major depressive disorder, single episode, unspecified; H40.9 Unspecified glaucoma; I10 Essential (primary) hypertension; B18.2 Chronic viral hepatitis C; F10.10 Alcohol abuse, uncomplicated; F12.90 Cannabis use, unspecified, uncomplicated; M54.9 Dorsalgia, unspecified; Z88.0 Allergy status to penicillin
CPT/HCPCS: 36415; 74177; 76700; 80048; 80053; 80074; 81001; 82962; 83036; 83735; 83930; 84100; 84484; 85007; 85027; 93005; 96360; 96361; 96372; 99406; J1815; J7030; Q9967; 99285-25